=== PATIENT | female | born 1945 | race Caucasian/White ===

== ENCOUNTER 2019-07-21 12:06 | Day surgery (SDC) | payer BC ==
[~2019-07-21] VITALS: Ht 162.6 cm; Wt 49.9 kg
[~2019-07-21 12:06] MED LIST: BACL10 PO; CYANOCOBAL1000 MCG/1 IM; DULOXETINE HCL60 M1 PO; Norco 5-325 Ta1 EACH PO; ONDA4 PO
[2019-07-21] MEDS ORDERED: ATEN50 (12:31)
--- NOTE | 2019-07-21 14:06 | NUR ---
07/21/19 1406 Krystal Adams OXYGEN PROVIDED VIA POM MASK 10L
== END 2019-07-21 15:03 | disposition home or self-care (01) ==
LOC: ORSCSDS 12:06
PROVIDERS: Student in an Organized Health Care Education/Training Program
PROC: 0DBN8ZX Excision of Sigmoid Colon, Via Natural or Artificial Opening Endoscopic, Diagnostic (ICD-10-PCS; principal; 2019-07-21 13:15)
PROC: 0DBL8ZX Excision of Transverse Colon, Via Natural or Artificial Opening Endoscopic, Diagnostic (ICD-10-PCS; principal; 2019-07-21 13:15)
PROC: 0DB68ZX Excision of Stomach, Via Natural or Artificial Opening Endoscopic, Diagnostic (ICD-10-PCS; principal; 2019-07-21 13:15)
PROC: 0DBK8ZX Excision of Ascending Colon, Via Natural or Artificial Opening Endoscopic, Diagnostic (ICD-10-PCS; principal; 2019-07-21 13:15)
PROC: 0DB58ZX Excision of Esophagus, Via Natural or Artificial Opening Endoscopic, Diagnostic (ICD-10-PCS; principal; 2019-07-21 13:15)
PROC: 0DB98ZX Excision of Duodenum, Via Natural or Artificial Opening Endoscopic, Diagnostic (ICD-10-PCS; principal; 2019-07-21 13:15)
DX: K92.1 Melena (principal); K21.9 Gastro-esophageal reflux disease without esophagitis; K31.7 Polyp of stomach and duodenum; K63.5 Polyp of colon; D12.3 Benign neoplasm of transverse colon; Z86.010 Personal history of colon polyps; R13.10 Dysphagia, unspecified; K64.8 Other hemorrhoids; K57.30 Diverticulosis of large intestine without perforation or abscess without bleeding; Z79.899 Other long term (current) drug therapy
CPT/HCPCS: 88305; 88342; J2704; J7120

== ENCOUNTER → 2019-09-20 | Outpatient (CLI) | payer BC ==
[~2019-09-20] MED LIST changes: +ATEN50
== END | disposition home or self-care (01) ==
LOC: LAB SHORT 15:37 → LAB UCHC 15:37
DX: N39.0 Urinary tract infection, site not specified (principal)
CPT/HCPCS: 87086

== ENCOUNTER 2020-04-18 11:08 | Emergency (ER) | payer OTHER, BC ==
[~2020-04-18] VITALS: Ht 160 cm; Wt 52.2 kg
== END 2020-04-18 15:00 | disposition home or self-care (01) ==
LOC: ER 11:08
DX: S16.1XXA Strain of muscle, fascia and tendon at neck level, initial encounter (principal); S09.90XA Unspecified injury of head, initial encounter; S20.212A Contusion of left front wall of thorax, initial encounter; Z88.0 Allergy status to penicillin; Z88.8 Allergy status to other drugs, medicaments and biological substances; Z88.5 Allergy status to narcotic agent; Z79.899 Other long term (current) drug therapy; V43.52XA Car driver injured in collision with other type car in traffic accident, initial encounter; Y92.410 Unspecified street and highway as the place of occurrence of the external cause
CPT/HCPCS: 70450; 71046; 72125; 99284-25; A9270-GY

== ENCOUNTER 2020-06-26 14:04 | Day surgery (SDC) | payer OTHER, BC ==
[2020-06-26 14:53] LABS: International Normalized Ratio 0.98; Prothrombin Time Results 10.5 Sec (9.7-11.5)
[2020-06-26 16:12] LABS: BODY FLUID RBC 0.116 M/mm3 (0-0); RBC Count, Synovial Fluid 116000 /mm3 (0-0); WBC Count, Synovial Fluid 680 /mm3 (0-180)
[2020-06-26 16:52] LABS: Lymphs, Synovial Fluid 12 % (0-15); Monocytes/Macrophages, Synovia 77 % (0-65); Neutrophils, Synovial Fluid 11 % (0-24)
[2020-06-26 16:53] LABS: Appearance, Synovial Fluid Bloody (Clear); Color, Synovial Fluid Red (None-P Yel)
== END 2020-06-26 23:07 | disposition home or self-care (01) ==
LOC: RAD 14:04
PROVIDERS: Orthopaedic Surgery
DX: M25.511 Pain in right shoulder (principal); M79.7 Fibromyalgia; G89.29 Other chronic pain; G62.9 Polyneuropathy, unspecified; I10 Essential (primary) hypertension; K21.9 Gastro-esophageal reflux disease without esophagitis; Z96.611 Presence of right artificial shoulder joint; Z79.1 Long term (current) use of non-steroidal anti-inflammatories (NSAID); Z79.899 Other long term (current) drug therapy; Z88.0 Allergy status to penicillin; Z88.5 Allergy status to narcotic agent; Z88.8 Allergy status to other drugs, medicaments and biological substances; Z87.891 Personal history of nicotine dependence
CPT/HCPCS: 20610; 77002; 85610; 85730; 87070; 87075; 87205; 89051; A9577; Q9967

== ENCOUNTER 2022-01-16 10:28 | Emergency (ER) | payer BC ==
[~2022-01-16] VITALS: Ht 160 cm; Wt 52.2 kg
[2022-01-16 10:52] LABS: BASOPHILS ABSOLUTE AUTO 0.01 K/mm3 (0.00-0.23); BASOPHILS PERCENT AUTO 0 % (0-2); EOSINOPHILS ABSOLUTE AUTO 0.18 K/mm3 (0.00-0.68); EOSINOPHILS PERCENT AUTO 2 % (0-6); Hematocrit 37.8 % (33.0-51.0); IMMATURE GRAN ABSOLUTE AUTO 0.03 K/mm3 (0.00-0.10); IMMATURE GRAN PERCENT AUTO 0 % (0-1); LYMPHOCYTES ABSOLUTE AUTO 2.49 K/mm3 (0.84-5.20); LYMPHOCYTES PERCENT AUTO 32 % (21-46); MONOCYTES ABSOLUTE AUTO 0.51 K/mm3 (0.16-1.47); MONOCYTES PERCENT AUTO 7 % (4-13); Mean Corpuscular HGB 29.1 pg (26.0-34.0); Mean Corpuscular HGB Conc 31.7 g/dL (31.5-36.5); Mean Corpuscular Volume 92 fL (80-100); NEUTROPHILS ABSOLUTE AUTO 4.64 K/mm3 (1.96-9.15); NEUTROPHILS PERCENT AUTO 59 % (41-73); Platelet Count 213 K/mm3 (150-400); RDW Coefficient Variation 12.8 % (11.7-14.2); RDW Standard Deviation 42.5 fL (35.1-46.3); Red Blood Cell Count 4.12 M/mm3 (3.80-5.20); White Blood Cell Count 7.86 K/mm3 (4.00-11.30)
[2022-01-16 11:17] LABS: International Normalized Ratio 1.02; Prothrombin Time Results 10.7 Sec (9.7-11.5)
[2022-01-16 11:20] LABS: Albumin, Blood 3.7 g/dL (3.4-5.0); Bilirubin, Total 0.4 mg/dL (0.1-1.0); Bun/Creatinine Ratio 31.5 (12.0-20.0); Calcium, Blood 9.4 mg/dL (8.5-10.1); Creatinine, Blood 0.83 mg/dL (0.40-1.00); Globulin, Blood 3.7 g/dL (2.2-4.0); Potassium, Blood 4.3 mmol/L (3.5-5.5); Total Protein, Blood 7.4 g/dL (6.4-8.2)
== END 2022-01-16 13:21 | disposition home or self-care (01) ==
LOC: ER 10:28
PROVIDERS: Student in an Organized Health Care Education/Training Program
DX: S01.81XA Laceration without foreign body of other part of head, initial encounter (principal); M79.644 Pain in right finger(s); M25.551 Pain in right hip; W18.09XA Striking against other object with subsequent fall, initial encounter; Z88.0 Allergy status to penicillin; Z88.8 Allergy status to other drugs, medicaments and biological substances; Z79.899 Other long term (current) drug therapy; Z87.891 Personal history of nicotine dependence; Z96.611 Presence of right artificial shoulder joint
CPT/HCPCS: 70450; 73140; 73502; 80053; 85025; 85610; 85730; 86850; 86900; 86901; A9270

== ENCOUNTER 2023-03-10 13:36 | Emergency (ER) | payer BC ==
[~2023-03-10] VITALS: Ht 160 cm; Wt 49.9 kg
[2023-03-10 14:07] LABS: BASOPHILS PERCENT AUTO 0 % (0-2); EOSINOPHILS ABSOLUTE AUTO 0.03 K/mm3 (0.00-0.68); EOSINOPHILS PERCENT AUTO 1 % (0-6); Hematocrit 41.3 % (33.0-51.0); Hemoglobin 13.7 g/dL (11.5-16.0); IMMATURE GRAN ABSOLUTE AUTO 0.01 K/mm3 (0.00-0.10); IMMATURE GRAN PERCENT AUTO 0 % (0-1); LYMPHOCYTES ABSOLUTE AUTO 1.04 K/mm3 (0.84-5.20); LYMPHOCYTES PERCENT AUTO 18 % (21-46); MONOCYTES ABSOLUTE AUTO 0.29 K/mm3 (0.16-1.47); MONOCYTES PERCENT AUTO 5 % (4-13); Mean Corpuscular HGB 29.7 pg (26.0-34.0); Mean Corpuscular HGB Conc 33.2 g/dL (31.5-36.5); Mean Corpuscular Volume 90 fL (80-100); Mean Platelet Volume 10.5 fL (9.1-12.4); NEUTROPHILS ABSOLUTE AUTO 4.43 K/mm3 (1.96-9.15); NEUTROPHILS PERCENT AUTO 76 % (41-73); Platelet Count 210 K/mm3 (150-400); RDW Standard Deviation 42.3 fL (35.1-46.3); Red Blood Cell Count 4.61 M/mm3 (3.80-5.20)
[2023-03-10] MEDS ORDERED: ALPRAZOLAM0.5 M1 PO (14:17)
[2023-03-10 14:22] LABS: Albumin/Globulin Ratio 1.1 (0.8-1.8); Bilirubin, Total 0.5 mg/dL (0.1-1.0); Bun/Creatinine Ratio 22.3 (12.0-20.0); Calcium, Blood 8.9 mg/dL (8.5-10.1); Creatinine, Blood 0.63 mg/dL (0.40-1.00); Globulin, Blood 3.5 g/dL (2.2-4.0); Potassium, Blood 4.3 mmol/L (3.5-5.5); Total Protein, Blood 7.5 g/dL (6.4-8.2)
[2023-03-10 14:24] LABS: Source, Urine Clean Catch
[2023-03-10 14:28] LABS: Appearance, Urine Clear (Clear); Bilirubin, Urine Neg (Neg); Blood, Urine 1+ (Neg); Color, Urine Yellow (P-Yellow); Glucose Qualitative, Urine 2+ (Neg); Ketones, Urine 1+ (Neg); Leukocyte Esterase, Urine Neg (Neg); Nitrite, Urine Neg (Neg); Protein, Urine 2+ (Neg); Urobilinogen, Urine NORM (Normal)
[2023-03-10 14:54] LABS: Bacteria Rare /hpf; Squamous Epithelial Cells Rare /hpf (Few); White Blood Cells, Urine 0-2 /hpf (0-5)
[2023-03-10 15:56] LABS: Influenza A, PCR NEGATIVE (NEGATIVE); Influenza B, PCR NEGATIVE (NEGATIVE); Resp Syncytial Virus, PCR NEGATIVE (NEGATIVE); SARS-Cov-2 (COVID-19) PCR, MMC NEGATIVE (NEGATIVE)
[2023-03-10] MEDS ORDERED: CIPR500 PO (18:42)
[2023-03-10] MEDS ORDERED: METR500 PO (18:42)
[2023-03-10 18:47] VITALS: BP 146/84
== END 2023-03-10 18:52 | disposition home or self-care (01) ==
LOC: ER 13:36
PROVIDERS: Emergency Medicine; Student in an Organized Health Care Education/Training Program
DX: K52.9 Noninfective gastroenteritis and colitis, unspecified (principal); R51.9 Headache, unspecified; R07.89 Other chest pain; Z88.0 Allergy status to penicillin; Z88.5 Allergy status to narcotic agent; Z88.8 Allergy status to other drugs, medicaments and biological substances; Z79.899 Other long term (current) drug therapy; Z87.891 Personal history of nicotine dependence
CPT/HCPCS: 0241U; 71046; 74177; 80053; 81001; 83690; 83880; 84484; 85025; 93005; 93010; 96361; 96374-59; 96375; 99285-25; A9270; J2405; J2765; J7030; Q9967

== ENCOUNTER → 2023-09-05 | Outpatient (CLI) | payer BC ==
[~2023-09-05] MED LIST changes: +ALPRAZOLAM0.5 M1 PO; +CIPR500 PO; +METR500 PO
== END ==
LOC: LAB SHORT 09:50
DX: R30.0 Dysuria (principal); R31.9 Hematuria, unspecified
CPT/HCPCS: 87077; 87086; 87186

== ENCOUNTER → 2023-11-05 | Outpatient (CLI) | payer BC ==
[2023-11-05 20:08] LABS: Bacterial Vaginosis PCR Negative (NEGATIVE); Candida Group, PCR NOT DETECTED (NOT DETECT); Candida glabrata-krusei, PCR NOT DETECTED (NOT DETECT)
== END | disposition home or self-care (01) ==
LOC: LAB 16:01 → LAB SHORT 16:01
PROVIDERS: Nurse Practitioner Family
DX: N39.0 Urinary tract infection, site not specified (principal)
CPT/HCPCS: 87086; 87481; 87661; 87801

== ENCOUNTER → 2023-11-10 | Outpatient (CLI) | payer BC | END | disposition home or self-care (01) | LOC: LAB 08:09 → LAB SHORT 08:09 | DX: L82.1 Other seborrheic keratosis (principal) ==

== ENCOUNTER → 2025-05-17 | Outpatient (CLI) | payer BC ==
[~2025-05-17] MED LIST changes: +AMIODARONE HCL400 M2 PO; -ATEN50; +ATEN50 PO; +Acetaminophen650 M1 PO; +Calcium Carbon500 MG PO; +DOXY100 PO; +ELIQUIS2.5 MG PO; +ESTRADIOL42.5 GM TD; +FURO40 PO; +HYDHCL25 PO; +IBU800 M1 PO; +METO50ER PO; +NITR.4SL SL; +PROAIR RESPICL90 MCG INH; +Tessalon200 MG PO; +VISBIOME 112.51 EACH PO
[2025-05-17 20:33] LABS: Albumin, Blood 3.9 g/dL (3.4-5.0); Anion Gap 6 mmol/L (3-11); Blood Urea Nitrogen 20 mg/dL (8-24); CO2, Blood 34 mmol/L (21-32); Calcium, Blood 9.3 mg/dL (8.5-10.1); Chloride, Blood 104 mmol/L (98-108); Creatinine, Blood 0.86 mg/dL (0.40-1.00); Glucose, Blood 98 mg/dL (70-99); Phosphorus, Blood 5.0 mg/dL (2.5-4.9); Potassium, Blood 4.9 mmol/L (3.5-5.5); Sodium, Blood 139 mmol/L (136-145)
== END ==
LOC: LAB 17:22 → LAB SHORT 17:22
PROVIDERS: Internal Medicine
DX: I50.32 Chronic diastolic (congestive) heart failure (principal); E53.8 Deficiency of other specified B group vitamins
CPT/HCPCS: 80069; 83880